=== PATIENT | male | born 1985 | race Caucasian/White ===

== ENCOUNTER 2017-04-14 09:04 | Emergency (ER) | payer OTHER ==
[~2017-04-14] VITALS: Ht 170.2 cm; Wt 90.0 kg
[~2017-04-14 09:04] MED LIST: HYDR10TA16 PO; Z.0.NO CURRENT MEDS
[2017-04-14 09:08] VITALS: BP 140/82; PULSE 70; RESP 18; TEMP 98.8
--- NOTE | 2017-04-14 09:30 | PD ---
HPI Chief Complaint: Laceration/Skin Injury Time Seen by Provider: 09:29 Travel History International Travel<30 days: No Contact w/Intl Traveler<30days: No Traveled to known affect area: No History of Present Illness HPI 31-year-old male who works at the [employer] system presents the emergency department with crush injury to the right pinky finger between a trailer hitch and trailer earlier today. Patient was evaluated by the skilled nursing medical staff, placed in a splint and bulky dressing. He is complaining of moderate pain and obvious laceration. X-ray of the right hand is ordered before laceration is visualized. Pain is currently 8 out of 10. He has no known drug allergies. Tetanus is up-to-date. [facility] Social History Alcohol Use: No Tobacco Use: No Substance Use: No Allergies-Medications (Allergen,Severity, Reaction): Coded Allergies: No Known Allergies (Verified , 07/23/10) Reported Meds & Prescriptions Reported Meds & Active Scripts Active Lortab (Hydrocodone-Acetaminophen) 5-325 Mg Tab 1 Tab PO Q6H PRN Keflex (Cephalexin) 500 Mg Capsule 500 Mg PO Q8H 10 Days Lortab 10/500 (Acetaminophen/Hydrocodone Bitart) 10 Mg/500 Mg Tab 1 Tab PO Q4- 6HPRN FOR PAIN Reported No Current Meds (Miscellaneous Medication) Misc Review of Systems Except as stated in HPI: all other systems reviewed are Neg General / Constitutional: No: Fever Eyes: No: Visual changes HENT: No: Headaches Cardiovascular: No: Chest Pain or Discomfort Respiratory: No: Shortness of Breath Gastrointestinal: No: Abdominal Pain Genitourinary: No: Dysuria Musculoskeletal: No: Pain Skin: No Rash Neurologic: No: Weakness Psychiatric: No: Depression Endocrine: No: Polydipsia Hematologic/Lymphatic: No: Easy Bruising Physical Exam Narrative GENERAL: Patient appears in mild to moderate distress. SKIN: Warm and dry. Normal color. Normal turgor. Wound site shows 1.5 cm laceration to the distal right pinky without involvement of the nail or nailbed in a longitudinal orientation above the DIP joint. HEAD: Atraumatic. Normocephalic. EYES: Pupils equal and round. No scleral icterus. No injection or drainage. ENT: No nasal bleeding or discharge. Mucous membranes pink and moist. Pharynx is clear. NECK: Trachea midline. Supple. CARDIOVASCULAR: Regular rate and rhythm. RESPIRATORY: No accessory muscle use. Clear to auscultation. Breath sounds equal bilaterally. GASTROINTESTINAL: Abdomen soft, non-tender, nondistended. Hepatic and splenic margins not palpable. MUSCULOSKELETAL: Extremities without clubbing, cyanosis, or edema. NEUROLOGICAL: Awake and alert. No obvious cranial nerve deficits. Motor grossly within normal limits. Five out of 5 muscle strength in the arms and legs. Normal speech. PSYCHIATRIC: Appropriate mood and affect; insight and judgment normal. Data Data Last Documented VS Vital Signs Date Time Temp Pulse Resp B/P (MAP) Pulse Ox O2 Delivery O2 Flow Rate FiO2 04/14/17 09:08 98.8 70 18 140/82 (101) Orders Orders Hand, Complete ([id number]) (04/14/17 09:41) Ice/Cold Pack (04/14/17 09:41) Acetaminophen (Tylenol) (04/14/17 09:45) Cefazolin Inj (Ancef Inj) (04/14/17 10:30) Bupivacaine Pf 0.5% Inj (Marcaine Pf 0.5 (04/14/17 10:45) Cefazolin Inj (Ancef Inj) (04/14/17 10:45) Lidocaine 1% Inj (50 Ml) (Xylocaine 1% I (04/14/17 10:45) [facility] Medical Decision Making Medical Screen Exam Complete: Yes Emergency Medical Condition: Yes Differential Diagnosis Workplace injury. Right wrist digit crush injury. Fracture. Open wound. Open fracture. Narrative Course Patient is medically stable at time of exam. Ice is applied to the injured area. X-ray of the right hand is ordered. Patient is given 1000 mg acetaminophen by mouth. Patient is now nothing by mouth. X-ray shows distal tuft fracture. Patient is given 1 g Ancef IM. Laceration was repaired. Wound care is discussed with the patient. Patient is continued on Keflex 500 mg 3 times a day 10 days. Patient is given Lortab 5/325 one every 6 hours when necessary pain #12. Patient is to follow-up with his Worker's Comp. provider in the next week to ensure improvement. Sutures should remain in place for at least 10 days. Patient can return the emergency Department with worsening symptoms as necessary. Procedures Procedure Narrative LACERATION LOCATION: Right distal pinky LENGTH: 1.5 cm NUMBER OF STITCHES/HUMZA: 5 simple interrupted REPAIR: The area of the laceration was prepped with Betadine and sterilely draped. Digital block of 2 mL 0.5% bupivacaine. The wound was copiously irrigated and explored without evidence of foreign body, tendon injury or neurovascular injury. The wound was closed using 5-0 Prolene. This was a single layer repair. A sterile dressing was applied. The patient was advised to keep the dressing clean and dry. Patient tolerated the procedure well. Diagnosis Primary Impression: Work related injury Additional Impressions: Laceration of finger of right hand without foreign body without damage to nail Qualified Codes: S61.216A - Laceration without foreign body of right little finger without damage to nail, initial encounter Open fracture of tuft of distal phalanx of finger Patient Instructions: Finger Fracture (ED), Finger Laceration (ED), General Instructions Departure Forms: Work Release Special Instructions: See Worker's Comp. forms Additional Instructions: X-ray shows distal tuft fracture. Patient is given 1 g Ancef IM. Laceration was repaired. Wound care is discussed with the patient. Patient is continued on Keflex 500 mg 3 times a day 10 days. Patient is given Lortab 5/325 one every 6 hours when necessary pain #12. Patient is to follow-up with his Worker's Comp. provider in the next week to ensure improvement. Sutures should remain in place for at least 10 days. Patient can return the emergency Department with worsening symptoms as necessary. Med/Other Pt SpecificInfo: Prescription(s) given Scripts Hydrocodone-Acetaminophen (Lortab) 5-325 Mg Tab 1 TAB PO Q6H Y for PAIN, #12 TAB 0 Refills Prov: Shayna Flower MD 04/14/17 Cephalexin (Keflex) 500 Mg Capsule 500 MG PO Q8H for Infection for 10 Days, CAP 0 Refills Prov: Shayna Flower MD 04/14/17 Disposition: 01 DISCHARGE HOME Condition: Stable Clinton Magallanes Apr 14, 2017 09:30
[2017-04-14] MEDS ORDERED: ACETAMINOPHEN 500 MG CPLT PO ONE (09:45)
--- NOTE | 2017-04-14 10:17 | RADRPT ---
EXAM DATE/TIME: 04/14/2017 10:08 [place] COMPARISON: No previous studies available for comparison. INDICATIONS : Patient smashed hand with trailer, complains of pain in fourth and fifth digit of r ight hand. MEDICAL HISTORY : None. SURGICAL HISTORY : None. ENCOUNTER: Initial ACUITY: 1 day PAIN SCORE: 10/10 LOCATION: Right hand, fourth and fifth digit FINDINGS: Fracture distal tuft fifth digit in reasonable alignment. No other fractures are appreciated. CONCLUSION: Fracture distal tuft fifth digit. Reinaldo Carpenter MD FACR on April 14, 2017 at 10:15 Board Certified Radiologist. This report was verified electronically.
[2017-04-14] MEDS ORDERED: LIDOCAINE HCL 1% 50 ML VIAL INFIL ONE (10:45)
[2017-04-14] MEDS ORDERED: BUPIVACAINE HCL PF 0.5% 10 ML VIAL INFIL ONE (10:45)
[2017-04-14] MEDS ORDERED: CEPH-460 PO (11:06)
[2017-04-14] MEDS ORDERED: HYDR-3533 PO ×2 (11:06→11:12)
== END 2017-04-14 11:37 | disposition home or self-care (01) ==
LOC: NEPK 09:04
DX: S61.216A Laceration without foreign body of right little finger without damage to nail, initial encounter (principal); S62.636B Displaced fracture of distal phalanx of right little finger, initial encounter for open fracture; W23.1XXA Caught, crushed, jammed, or pinched between stationary objects, initial encounter; Y92.149 Unspecified place in prison as the place of occurrence of the external cause; Y99.0 Civilian activity done for income or pay
CPT/HCPCS: 12001; 73130; 99284; J0690